=== PATIENT | female | born 1950 | race Caucasian/White ===

== ENCOUNTER 2016-07-10 10:34 | Inpatient (IN) | payer MEDICARE, OTHER ==
[~2016-07-10] VITALS: Ht 154.9 cm; Wt 59.5 kg
[~2016-07-10 10:34] MED LIST: MELO15TA2 PO; TRAM50 PO
[2016-07-10 10:35] VITALS: BP 126/60; PULSE 64; RESP 20; TEMP 98.3; O2SAT 97
--- NOTE | 2016-07-10 11:19 | PD ---
HPI Chief Complaint: Injury Time Seen by Provider: 11:11 Travel History International Travel<30 days: No Contact w/Intl Traveler<30days: No Traveled to known affect area: No History of Present Illness HPI 65-year-old female presents to the emergency department for evaluation of right knee injury that occurred on July 02, 2016. She was on a cruise ship when she slipped landing on her right knee. She denies any other injury. Patient denies hitting her head or LOC. No neck pain or back pain. No chest pain or abdominal pain. No vomiting. She was seen by the physician on the cruise ship and was instructed that she would need surgery. According to his documentation , sounds like a comminuted patella fracture. The patient states that she was given prescription for Tylenol number threes which she has been taking. The patient reports history of glaucoma and uses eyedrops. She also takes a aspirin daily, but has not taken any today. The patient states she last ate yesterday. She drank a cup of black coffee approximately 2 hours ago, around 9 AM. The patient denies any other complaints at this time. Patient states she returned from the cruise ship around 1 AM this morning. PFSH Past Surgical History Section: Yes Social History Alcohol Use: No Tobacco Use: No Substance Use: No Allergies-Medications (Allergen,Severity, Reaction): Coded Allergies: No Known Allergies (Unverified , 02/08/13) Reported Meds & Prescriptions Reported Meds & Active Scripts Active Aspirin 325 Mg Tab 325 Mg PO DAILY Start Aspirin after Lovenox is completed. Lovenox Inj (Enoxaparin Sodium) 40 Mg/0.4 Ml Syr 40 Mg SQ DAILY Start Aspirin after Lovenox is completed. Cheraw (Hydrocodone-Acetaminophen) 5-325 mg Tab 1-2 Tab PO Q4H PRN Ultram (Tramadol HCl) 50 Mg Tab 50 Mg PO Q6H PRN FOR PAIN Mobic (Meloxicam) 15 Mg Tab 1 Tab PO DAILY NEEDED FOR PAIN Review of Systems Except as stated in HPI: all other systems reviewed are Neg Physical Exam Narrative GENERAL: Well-nourished, well-developed female patient, afebrile. SKIN: Focused skin assessment warm/dry. Patient has large swelling and ecchymosis to right anterior knee. HEAD: Normocephalic. Atraumatic. EYES: No scleral icterus. No injection or drainage. NECK: Supple, trachea midline. No JVD or lymphadenopathy. CARDIOVASCULAR: Regular rate and rhythm without murmurs, gallops, or rubs. Right pedal pulse was easily found with Doppler. RESPIRATORY: Breath sounds equal bilaterally. No accessory muscle use. Lungs sounds are clear to auscultation. GASTROINTESTINAL: Abdomen soft, non-tender, nondistended. MUSCULOSKELETAL: No cyanosis, or edema. Patient has tenderness over right anterior knee. Range of motion was not tested at this time due to known patella fracture. BACK: Nontender without obvious deformity. No CVA tenderness. No midline spinal tenderness. Data Data Last Documented VS Vital Signs Date Time Temp Pulse Resp B/P Pulse Ox O2 Delivery O2 Flow Rate FiO2 07/10/16 11:40 Room Air 07/10/16 10:35 98.3 64 20 126/60 97 Orders Knee, Complete (4vws) (07/10/16 ) Complete Blood Count With Diff (07/10/16 12:38) Comprehensive Metabolic Panel (07/10/16 12:38) Act Partial Throm Time (Ptt) (07/10/16 12:38) Prothrombin Time / Inr (Pt) (07/10/16 12:38) Chest, Single Ap (07/10/16 ) Diet Npo (07/10/16 Lunch) Splint Or Brace Apply/Monitor (07/10/16 12:42) Admit Order (Ed Use Only) (07/10/16 12:48) MDM Medical Decision Making Medical Screen Exam Complete: Yes Emergency Medical Condition: Yes Medical Record Reviewed: Yes Interpretation(s) Last Impressions Knee X-Ray 07/10/16 0000 Signed Impressions: Service Date/Time: Sunday, July 10, 2016 15:39 - CONCLUSION: Anatomic alignment. Rikki Solis MD FACR Knee X-Ray 07/10/16 0000 Signed Impressions: Service Date/Time: Sunday, July 10, 2016 11:43 - CONCLUSION: Patella fracture with significant distraction. Rikki Solis MD FACR Chest X-Ray 07/10/16 0000 Signed Impressions: Service Date/Time: Sunday, July 10, 2016 12:52 - CONCLUSION: Compensated cardiomegaly otherwise negative Rikki Solis MD FACR Differential Diagnosis Patella fracture versus ligamentous injury versus dislocation Narrative Course 65 year old female presents to the emergency department for evaluation of right knee injury that occurred on a cruise ship on July 02. X-ray of the right knee is ordered and pending. X-ray of the right knee shows patellar fracture with significant distraction. I spoke to Dr. Alicea, orthopedist industrial automation specialist. He would like the patient to stay nothing by mouth and admitted to hospitalist. He will plan on doing surgery today. The resident's accepted admission. Diagnosis Primary Impression: Patellar fracture Qualified Code: S82.001A - Closed displaced fracture of right patella, unspecified fracture morphology, initial encounter Admitting Information Admitting Physician Requests: Admit Scripts Aspirin 325 Mg [id number] Mg PO DAILY #30 TAB Ref 0 Start Aspirin after Lovenox is completed. Prov:Mehul Alicea MD 07/10/16 Enoxaparin Inj (Lovenox Inj)40 Mg/0.4 Ml Syr40 Mg SQ DAILY #10 SYRINGE Ref 0 Start Aspirin after Lovenox is completed. Prov:Mehul Alicea MD 07/10/16 Hydrocodone-Acetaminophen (Cheraw)5-325 mg Tab1-2 Tab PO Q4H PRN (PAIN) #60 TAB Ref 0 Prov:Mehul Alicea MD 07/10/16 Isabel Pompa July 10, 2016 11:19
[2016-07-10] MEDS ORDERED: ePHEDrine/NS 25 MG/5 ML SYR IV ONE (12:00)
[2016-07-10] MEDS ORDERED: ONDANSETRON HCL 4 MG/2 ML VIAL IV PUSH ONE (12:00)
[2016-07-10] MEDS ORDERED: LACTATED RINGER'S 1000 ML INJ 1,000 ML IV ONE (12:00)
[2016-07-10] MEDS ORDERED: PROPOFOL 200 MG/20 ML AMP IV ONE (12:00)
--- NOTE | 2016-07-10 12:02 | RADRPT ---
EXAM DATE/TIME: 07/10/2016 11:43 [facility] COMPARISON: No previous studies available for comparison. INDICATIONS : Pain from fall. MEDICAL HISTORY : None. SURGICAL HISTORY : None. ENCOUNTER: Initial ACUITY: 1 week PAIN SCORE: 9/10 LOCATION: Right knee. FINDINGS: There is patella fracture with distraction by 4 cm between upper and lower pole.. Large joint effusi on is present. The femur and tibial plateau are intact CONCLUSION: Patella fracture with significant distraction. Rikki Solis MD FACR on July 10, 2016 at 11:59 Board Certified Radiologist. This report was verified electronically.
--- NOTE | 2016-07-10 12:49 | HHI.HP ---
[facility] Service Family Medicine Primary Care Physician Non-Staff Admission Diagnosis Patellar fracture Diagnoses: International Travel<30 Days: Yes Contact w/Intl Traveler<30days: [place] Traveled to: [place] Known Affected Area: No History of Present Illness 65 year old female with glaucoma is admitted for right patellar fracture. The patient was on a cruise with her when she slipped on the wet deck falling directly on her right knee on 07/02. She states she instantly heard a crack and knew she had broken her knee. She went [facility] and XRs showed the fracture. She was advised to have surgery but she wanted to wait to come back to the [place] rather than having surgery in [facility] where it would not be covered. She has been managing her pain with Tylenol with codeine and ambulating with crutches. She did not sustain any other injuries, hit her head, or lose consciousness. She has no local PCP as she spends most of the year in [place]. (Pati Jacob MD) Review of Systems Constitutional: DENIES: Fatigue, Fever, Chills Eyes: DENIES: Blurred vision Respiratory: DENIES: Cough, Shortness of breath Cardiovascular: DENIES: Chest pain, Palpitations, Syncope, Lower Extremity Edema Gastrointestinal: DENIES: Abdominal pain, Black stools, Bloody stools, Constipation, Diarrhea, Nausea, Vomiting Musculoskeletal: COMPLAINS OF: Joint pain (R knee), Joint Swelling (R knee), DENIES: Back pain, Neck pain Hematologic/lymphatic: COMPLAINS OF: Bruising (R knee) Neurologic: COMPLAINS OF: Abnormal gait, DENIES: Headache, Paresthesias ( Pati Jacob MD) Past Family Social History Past Medical History Glaucoma Past Surgical History x 3 Reported Medications Ultram (Tramadol HCl) 50 Mg Tab 50 Mg PO Q6H PRN Mobic (Meloxicam) 15 Mg Tab 1 Tab PO DAILY PRN (Pati Jacob MD) Allergies: Coded Allergies: No Known Allergies (Unverified , 02/08/13) Active Ordered Medications Acetaminophen (Ofirmev Inj) 1,000 mg Q6H PRN IV; Start 07/10/16 at 13:30; Status UNV Morphine Sulfate (Morphine Inj) 2 mg Q3H PRN IV PUSH; Start 07/10/16 at 13:30; Status UNV Naloxone HCl (Narcan Inj) 0.4 mg UNSCH PRN IV; Start 07/10/16 at 13:30; Status UNV Ondansetron HCl (Zofran Inj) 4 mg Q6H PRN IVP; Start 07/10/16 at 13:30; Status UNV Sodium Chloride (NS 1000 ml Inj) 1,000 ml @ 100 mls/hr Q10H IV; Start 07/10/16 at 13:16; Status UNV Sodium Chloride (NS Flush) 2 ml BID IV FLUSH; Start 07/10/16 at 21:00; Status UNV Sodium Chloride (NS Flush) 2 ml UNSCH PRN IV FLUSH; Start 07/10/16 at 13:30; Status UNV Temazepam (Restoril) 15 mg HS PRN PO; Start 07/10/16 at 13:30; Status UNV Family History Mother: , CVA Father: , prostate cancer Social History Lives with in [facility] and [place] Retired EtOH: never Tobacco: never Illicit drugs: never (Pati Jacob MD) Physical Exam Vital Signs Vital Signs Date Time Temp Pulse Resp B/P Pulse Ox O2 Delivery O2 Flow Rate FiO2 07/10/16 10:35 98.3 64 20 126/60 97 Room Air Physical Exam GENERAL: Well-nourished, well-developed female laying comfortably in bed in no apparent distress. SKIN: Warm and dry. HEENT: Atraumatic. Normocephalic. No temporal or scalp tenderness. Pupils equal round and reactive. Extraocular motions intact. No scleral icterus. No injection or drainage. Nose without bleeding, purulent drainage or septal hematoma. Throat without erythema, tonsillar hypertrophy or exudate. Uvula midline. Airway patent. NECK: Trachea midline. No JVD or lymphadenopathy. Supple, nontender, no meningeal signs. CARDIOVASCULAR: Regular rate and rhythm without murmurs, gallops, or rubs. RESPIRATORY: Clear to auscultation. Breath sounds equal bilaterally. No wheezes , rales, or rhonchi. GASTROINTESTINAL: Vertical incision scar over lower abdomen. Abdomen soft, nontender, nondistended. No hepatosplenomegaly or palpable masses. No guarding. MUSCULOSKELETAL: Right knee with significant effusion and bruising. Able to wiggle toes and neurovascular intact. Bilateral calves supple without tenderness. NEUROLOGICAL: Awake and alert. Motor and sensory grossly within normal limits. Normal speech. (Pati Jacob MD) Imaging Knee X-Ray 07/10/16 0000 Signed Impressions: Service Date/Time: Sunday, July 10, 2016 11:43 - CONCLUSION: Patella fracture with significant distraction. Rikki Solis MD FACR (Pati Jacob MD) Assessment and Plan Assessment and Plan 65 year old female admitted for right patellar fracture after a mechanical fall on 07/02/16. Orthopedic surgery is consulted and Dr. Wild planning for surgery today. Code Status FULL (Pati Jacob MD) Attending Attestation Patient seen and examined. Case reviewed and discussed with the resident team. Agree with plan of care as discussed with me and documented in the resident note. seen originally in ED just prior to surgery (Mitzi Raymond MD) Problem List: (1) Patellar fracture Status: Acute Plan: Patient sustained a right patellar fracture with 4 cm distraction and significant effusion. Orthopedic surgery consulted and planning on surgery today. - Ofirmev Q6H PRN - Morphine 2 mg IV Q3H PRN breakthrough - Will await post-op recommendations to determine D/C needs (e.g. PT, home health, etc.) (2) Nutrition, metabolism, and development symptoms Status: Acute Plan: - Fluids: NS at 100 ml/hr since NPO - Electrolytes: Monitor - Nutrition: NPO in anticipation of surgery - DVT prophylaxis: No chemical anticoagulation since upcoming surgical procedure Chronic medical problems - Glaucoma: resume home drops (patient has with her) (Pati Jacob MD) Physician Certification 2 Midnight Certification Type: Admission for Inpatient Services Order for Inpatient Services The services are ordered in accordance with Medicare regulations or non- Medicare payer requirements, as applicable. In the case of services not specified as inpatient-only, they are appropriately provided as inpatient services in accordance with the 2-midnight benchmark. Estimated LOS (days): 2 2 days is the estimated time the patient will need to remain in the hospital, assuming treatment plan goals are met and no additional complications. Post-Hospital Plan: Home Health (Pati Jacob MD) Problem Qualifiers (1) Patellar fracture: Qualified Code: S82.001A - Closed displaced fracture of right patella, unspecified fracture morphology, initial encounter Pati Jacob MD July 10, 2016 12:49 Mitzi Raymond MD July 11, 2016 11:34
[2016-07-10] MEDS ORDERED: NALOXONE HCL 0.4 MG/ML AMP IV PRN ×2 (13:30→16:00)
[2016-07-10] MEDS ORDERED: ACETAMINOPHEN 1000 MG/100 ML VIAL IV PRN (13:30)
[2016-07-10] MEDS ORDERED: SODIUM CHLORIDE 0.9% FLUSH 10 ML FLUSH IV FLUSH PRN (13:30)
[2016-07-10] MEDS ORDERED: ONDANSETRON HCL 4 MG/2 ML VIAL IVP PRN ×2 (13:30→16:00)
[2016-07-10] MEDS ORDERED: MORPHINE SULFATE 4 MG/ML INJ IV PUSH PRN ×2 (13:30→16:00)
[2016-07-10] MEDS ORDERED: TEMAZEPAM 15 MG CAP PO PRN (13:30)
[2016-07-10 13:35] VITALS: BP 139/65; PULSE 65; RESP 20; TEMP 98.6; O2SAT 97
[2016-07-10 13:38] VITALS: O2SAT 96
[2016-07-10 13:41] LABS: AUTOMATED NEUTROPHIL # 5.7 TH/MM3 (1.8-7.7); BASOPHIL # 0.1 TH/MM3 (0-0.2); BASOPHIL % 0.8 % (0.0-2.0); EOSINOPHIL # 0.1 TH/MM3 (0-0.4); EOSINOPHIL % 1.5 % (0.0-4.0); HEMATOCRIT 39.7 % (35.0-46.0); HEMO FLAGS DIFF FINAL; LYMPH % 27.7 % (9.0-44.0); LYMPHOCYTE # 2.6 TH/MM3 (1.0-4.8); MEAN CELL VOLUME 94.4 FL (80.0-100.0); MEAN CORPUSCULAR HEMOGLOBIN 31.5 PG (27.0-34.0); MEAN CORPUSCULAR HGB CONC 33.4 % (32.0-36.0); MONO % 8.1 % (0.0-8.0); NEUT % 61.9 % (16.0-70.0); PLATELET COUNT 307 TH/MM3 (150-450); RED BLOOD COUNT 4.21 MIL/MM3 (4.00-5.30); RED CELL DISTRIBUTION WIDTH 12.6 % (11.6-17.2); WHITE BLOOD COUNT 9.2 TH/MM3 (4.0-11.0)
[2016-07-10] MEDS ORDERED: GENTAMICIN SULFATE 80 MG/2 ML VIAL ONE (13:44)
[2016-07-10] MEDS ORDERED: ceFAZolin INJ 1,000 MG VIAL ONE ×2 (13:44→14:09)
[2016-07-10 13:50] LABS: PROTHROMBIN TIME - PATIENT 10.7 SEC (9.8-11.6)
[2016-07-10 13:53] LABS: APTT (PATIENT) 25.3 SEC (24.3-30.1)
[2016-07-10] MEDS ORDERED: SODIUM CHLOR 0.9% 1000 ML INJ 1,000 ML IV SCH (14:00)
[2016-07-10] MEDS ORDERED: VANCOMYCIN HCL 1000 MG VIAL ONE (14:09)
[2016-07-10] MEDS ORDERED: SODIUM CHLORIDE 0.9% INJ 100 ML ONE (14:10)
[2016-07-10] MEDS ORDERED: SODIUM CHLOR 0.9% 250 ML INJ 250 ML ONE (14:10)
--- NOTE | 2016-07-10 14:25 | RADRPT ---
EXAM DATE/TIME: 07/10/2016 12:52 [facility] COMPARISON: No previous studies available for comparison. INDICATIONS : Evaluate for pneumonia, pneumothorax and communicable disease. Pre-op right knee brizuela rgery. MEDICAL HISTORY : None. SURGICAL HISTORY : None. ENCOUNTER: Initial ACUITY: 1 day PAIN SCORE: 0/10 LOCATION: Bilateral chest FINDINGS: The lungs are clear. The heart is minimally enlarged. The pulmonary vascularity is normal. There is n o evidence for infiltrate or failure. The portion of the bony skeleton visualized is unremarkable. CONCLUSION: Compensated cardiomegaly otherwise negative Rikki Solis MD FACR Board Certified Radiologist. This report was verified electronically.
[2016-07-10] MEDS ORDERED: VANCOMYCIN 1,000 MG/NS 250 ML IV ONE ×2 (14:30)
[2016-07-10] MEDS ORDERED: ceFAZolin 1,000 MG/NS 100 ML IV ONE ×2 (14:30)
[2016-07-10] MEDS ORDERED: TRANEXAMIC ACID IV SCH (14:30)
[2016-07-10] MEDS ORDERED: SODIUM CHLORIDE 0.9% IV SCH (14:30)
[2016-07-10] MEDS ORDERED: SODIUM CHLORIDE 0.9% IV ONE (14:40)
[2016-07-10] MEDS ORDERED: TRANEXAMIC ACID IV ONE (14:40)
--- NOTE | 2016-07-10 14:59 | MB ---
cc: MITRA DELGADO DATE OF CONSULTATION: 07/10/2016 REASON FOR CONSULTATION Right patella fracture. HISTORY OF PRESENT ILLNESS The patient is a 65-year-old female with a history for glaucoma. She was on a cruise and on July 02 she fell onto the deck falling directly onto the right knee. She immediately felt a crack and was unable to ambulate. She tells me that the cruise provided her with a single crutch to help prop up her leg. The patient was advised that she needed to have surgery. The patient decided that she wanted to come back to the [place] rather than having surgery in [place]. She was being managed on Tylenol with codeine. The patient denies pain in other body areas. She does not describe any specific numbness or tingling about the right lower extremity. PAST MEDICAL HISTORY Positive for glaucoma. PAST SURGICAL HISTORY x3. MEDICATIONS Tramadol. ALLERGIES No known drug allergies. FAMILY HISTORY Noncontributory. SOCIAL HISTORY The patient lives in [facility]. She is retired. She does not drink alcohol and does not smoke. PHYSICAL EXAMINATION VITAL SIGNS: The patient's temperature is 98.6, pulse 65, respirations 20, blood pressure 139/65. GENERAL: She is awake, alert and oriented x3. She has normal affect, insight and judgment. HEENT: Head is atraumatic. Oropharynx is moist. NECK: Supple. HEART: Regular rate and rhythm. LUNGS: Clear to auscultation bilaterally. ABDOMEN: Soft, nontender, nondistended. BACK: No CVA tenderness. EXTREMITIES: Right lower extremity with significant swelling and moderate bruising. She has some swelling going down towards the ankle but not a lot of pitting edema. She can actively move the toes well on the right lower extremity. She has 2+ dorsalis pedis pulse. The left knee has no swelling, no tenderness, normal alignment. Bilateral upper extremities have good active range of motion. IMAGING Imaging reveals a significantly displaced transverse patella fracture. LABORATORY Laboratory studies show a white cell count of 9.2, hematocrit 39.7, INR 1.0. Chemistry is pending. IMPRESSION Right knee significantly displaced patella fracture. DECISION-MAKING I reviewed the diagnosis in detail with the patient. We discussed the radiology report and my interpretation of the images. I do feel that surgical management is urgently indicated for management of this condition. Without surgical management the patient would likely have severe dysfunction of the leg and likely be unable to actively extend the leg which would significantly and seriously impede the patient to have normal walking ability with the leg. Nonoperative management will create severe disability to the right leg. Therefore, I would recommend an open reduction and internal fixation of the right patella. There are risks associated with surgery. She understands the risks to include but not limited to injury to nerves and blood vessels, bleeding, infection, failure of hardware, need for reoperation, continued pain, loss of range of motion of the knee, weakness of the knee, need for removal of the hardware, DVT, pulmonary embolus, pneumonia and . The patient wants to move forward with surgical management. All questions have been answered. MD HILARIO Lea/SHAKEEL /2:30 PM /2:45 PM
[2016-07-10] MEDS ORDERED: Post-op Orders (for Pharmacy) MISC XX ONE (16:00)
[2016-07-10] MEDS ORDERED: SODIUM CHLORIDE 0.9% FLUSH 5 ML FLUSH IVF PRN (16:00)
[2016-07-10] MEDS ORDERED: MISCELLANEOUS PHARMACY INFORMATION XX ONE (16:00)
[2016-07-10] MEDS ORDERED: MAGNESIUM HYDROXIDE SUSP 30 ML CUP PO PRN (16:00)
[2016-07-10] MEDS ORDERED: MISCELLANEOUS NURSING INFORMATION XX PRN (16:00)
[2016-07-10] MEDS ORDERED: diphenhydrAMINE HCL 25 MG CAP PO PRN (16:00)
[2016-07-10] MEDS ORDERED: ACETAMINOPHEN/HYDROcodone 325 MG/5 MG TAB PO PRN (16:00)
--- NOTE | 2016-07-10 16:04 | PD.OP ---
cc: Mehul Alicea MD Operative Report Date of Surgery: July 10, 2016 Preoperative Diagnosis: Right knee significantly displaced patella fracture Postoperative Diagnosis: Same Procedure: Right knee patella open reduction and internal fixation Anesthesia: Gen. Surgeon: Mehul Alicea Plsql Developer(s): ROSSANA Dubois The surgical procedure was assisted by my Advanced Registered Nurse Practitioner. My FRONT END APPLICATION DEVELOPER presence was necessary throughout this case for the manipulation and positioning of the surgical extremity. My FRONT END APPLICATION DEVELOPER was assisting me throughout the duration of this procedure. The skill set of an Advance Registered Nurse Practitioner was medically necessary to complete this procedure. During the surgical case, the surgical services assistant was working at the back table and the Advance Registered Nurse Practitioner was directly assisting me. Operation and Findings: Tourniquet time: 35 minutes at 250 mmHg of pressure Estimated blood loss: 50 cc The patient received intravenous vancomycin and Ancef. After the appropriate anesthesia was administered, the patient's leg was prepped and draped in the usual sterile fashion. The leg was exsanguinated and the tourniquet was raised. We made a standard incision on the anterior aspect of the knee. We immediately identified a displaced transverse patella fracture. We evacuated significant hematoma. We curetted the edges to identify both the proximal and distal fragments. There was some comminution noted medially and inferiorly which was removed. The visualized portion of the trochlea was unremarkable. We anatomically reduced the fracture fragments and provisionally held the fracture with reduction clamps. We verified anatomic alignment both on palpation of the articular surface and also on fluoroscopy. We then placed 2 wires from distal to proximal. We used these wires to place 2 individual 4-0 Synthes cannulated stainless steel partially-threaded screws. Both screws had very good purchase. We then placed 18-gauge wire through the first screw then crisscrossed and brought it down to the bottom of the second screw and threaded the wire through the second screw. We then had a crisscross pattern that we tightened both the medial and lateral sides of the wire in usual fashion with excellent compression. The knee had full range of motion with no displacement of the fracture noted. We took final fluoroscopic images. The tourniquet was released. Hemostasis was achieved and the knee was thoroughly irrigated. We augmented repair of both the medial and lateral retinaculum which were torn. This was completed with 1-0 Vicryl. Skin was closed with 2-0 Vicryl followed by tanya. The postoperative plan is for weight-bear as tolerated to the extremity with a canvas knee splint. Mehul Alicea MD July 10, 2016 16:04
[2016-07-10] MEDS ORDERED: ENOX40P SQ (16:10)
[2016-07-10] MEDS ORDERED: NORC5TAB PO (16:10)
[2016-07-10] MEDS ORDERED: ASPI325T PO (16:10)
[2016-07-10] MEDS ORDERED: *morphine SULFATE 8 MG/ML PERIprocedure ONLY ONE ×2 (16:24→16:37)
[2016-07-10] MEDS ORDERED: MIDAZOLAM HCL 2 MG/2 ML VIAL ONE (16:28)
[2016-07-10] MEDS ORDERED: fentaNYL CITRATE 250 MCG/5 ML AMP ONE (16:28)
[2016-07-10] MEDS: DEXT 5%-NACL 0.45% 1000 ML INJ 1,000 ML IV SCH (16:45)
[2016-07-10] MEDS ORDERED: WALKER WHEELS/F1 MIS (16:46)
[2016-07-10] MEDS ORDERED: COMMODE 3-IN-11 MIS (16:46)
[2016-07-10] MEDS ORDERED: *HYDROmorphone PF 1 MG VIAL PERIprocedural Use ONLY ONE ×2 (16:55→17:18)
--- NOTE | 2016-07-10 16:55 | RADRPT ---
EXAM DATE/TIME: 07/10/2016 15:39 [facility] COMPARISON: No previous studies available for comparison. INDICATIONS : Reduction with screw and wire placement right patella. MEDICAL HISTORY : Patella fracture SURGICAL HISTORY : None. ENCOUNTER: Subsequent ACUITY: 1 day PAIN SCORE: Non-responsive. LOCATION: Right knee. FINDINGS: Screws and wrap are seen bridging the patella fracture. Alignment is anatomic. CONCLUSION: Anatomic alignment. Rikki Solis MD FACR on July 10, 2016 at 16:44 Board Certified Radiologist. This report was verified electronically.
[2016-07-10] MEDS ORDERED: DO NOT ADM ANY ANTICOAGULANT DRUGS PRN (17:00)
[2016-07-10 18:17] VITALS: BP 137/71; PULSE 67; RESP 16; TEMP 97.4; O2SAT 99
[2016-07-10 20:00] VITALS: BP 117/64; PULSE 63; RESP 16; TEMP 95.7; O2SAT 100
[2016-07-10] MEDS: DOCUSATE SODIUM 50 MG/SENNA 8.6 MG TAB PO SCH (20:12)
[2016-07-10] MEDS ORDERED: SODIUM CHLORIDE 0.9% FLUSH 10 ML FLUSH IV FLUSH SCH (21:00)
[2016-07-10] MEDS: SODIUM CHLORIDE 0.9% FLUSH 5 ML FLUSH IVF SCH (21:00)
[2016-07-10] MEDS ORDERED: COMBIGAN EACH EYE SCH (21:00)
[2016-07-10 21:04] LABS: ANION GAP 8 MEQ/L (5-15); AST (GOT) 34 U/L (15-37); BICARBONATE 26.9 MEQ/L (21.0-32.0); BLOOD UREA NITROGEN 12 MG/DL (7-18); CHLORIDE 101 MEQ/L (98-107); GLOMERULAR FILTRATION RATE 73 ML/MIN (>89); POTASSIUM 4.1 MEQ/L (3.5-5.1); SODIUM (NA) 136 MEQ/L (136-145)
[2016-07-10 21:08] LABS: ALKALINE PHOSPHATASE 126 U/L (45-117); ALT (GPT) 50 U/L (10-53); TOTAL BILIRUBIN ADULT 0.5 MG/DL (0.2-1.0)
[2016-07-11] VITALS: BP 104/59; PULSE 67; RESP 16; TEMP 97.6; O2SAT 97
[2016-07-11] MEDS: DEXT 5%-NACL 0.45% 1000 ML INJ 1,000 ML IV SCH ×2 (02:00→12:00)
[2016-07-11 03:41] VITALS: O2SAT 98
[2016-07-11 04:00] VITALS: BP 110/64; PULSE 75; RESP 16; TEMP 97.7; O2SAT 97
[2016-07-11] MEDS: ACETAMINOPHEN/HYDROcodone 325 MG/5 MG TAB PO PRN ×3 (04:20→14:19)
[2016-07-11 07:10] LABS: AUTOMATED NEUTROPHIL # 7.6 TH/MM3 (1.8-7.7); BASOPHIL # 0.1 TH/MM3 (0-0.2); BASOPHIL % 0.5 % (0.0-2.0); EOSINOPHIL % 0.3 % (0.0-4.0); HEMATOCRIT 34.9 % (35.0-46.0); HEMO FLAGS DIFF FINAL; LYMPH % 22.4 % (9.0-44.0); LYMPHOCYTE # 2.5 TH/MM3 (1.0-4.8); MEAN CELL VOLUME 94.4 FL (80.0-100.0); MEAN CORPUSCULAR HEMOGLOBIN 31.4 PG (27.0-34.0); MEAN CORPUSCULAR HGB CONC 33.3 % (32.0-36.0); MONO % 7.9 % (0.0-8.0); NEUT % 68.9 % (16.0-70.0); PLATELET COUNT 296 TH/MM3 (150-450); RED BLOOD COUNT 3.69 MIL/MM3 (4.00-5.30); RED CELL DISTRIBUTION WIDTH 12.4 % (11.6-17.2)
[2016-07-11] MEDS: DOCUSATE SODIUM 50 MG/SENNA 8.6 MG TAB PO SCH (07:38)
[2016-07-11] MEDS: SODIUM CHLORIDE 0.9% FLUSH 5 ML FLUSH IVF SCH (07:39)
[2016-07-11 07:55] VITALS: BP 120/58; PULSE 73; RESP 16; TEMP 99.3; O2SAT 97
[2016-07-11] MEDS ORDERED: MULTIVITAMINS/MINERALS THERAPEUTIC TAB PO SCH (09:00)
--- NOTE | 2016-07-11 09:41 | PD.ORT.PN ---
Subjective Subjective Remarks c/o pain, but controlled Objective Vitals Vital Signs Date Time Temp Pulse Resp B/P Pulse Ox O2 Delivery O2 Flow Rate FiO2 07/11/16 09:26 18 07/11/16 07:55 99.3 73 16 120/58 97 07/11/16 04:00 97.7 75 16 110/64 97 07/11/16 03:41 98 07/11/16 00:00 97.6 67 16 104/59 97 07/10/16 20:00 95.7 63 16 117/64 100 07/10/16 18:17 97.4 67 16 137/71 99 07/10/16 17:30 97.3 79 13 155/60 98 Nasal Cannula 2 07/10/16 17:15 69 13 155/60 97 07/10/16 17:00 77 14 156/71 100 07/10/16 16:45 76 26 160/70 100 Nasal Cannula 2 07/10/16 16:21 97.3 82 12 102/58 100 Nasal Cannula 2 07/10/16 13:38 96 21 07/10/16 13:35 98.6 65 20 139/65 97 Room Air 07/10/16 11:40 Room Air 07/10/16 10:35 98.3 64 20 126/60 97 Room Air I/O 07/10/16 07/10/16 07/10/16 07/11/16 07/11/16 07/11/16 07:00 15:00 23:00 07:00 15:00 23:00 Intake Total 1340 ml 240 ml Output Total 20 ml Balance 1320 ml 240 ml Intake Oral 240 ml 240 ml Other 1100 ml Output Estimated Blood Loss 20 ml # Voids 2 1 # Bowel Movements 0 Result Diagram: 07/11/16 0636 07/10/162021 Other Results Laboratory Tests Test 07/10/16 13:20 Prothrombin Time 10.7 SEC (9.8-11.6) Prothromb Time International 1.0 RATIO Ratio Objective Remarks right leg is dressed and clean, 2+, calf soft with no swelling, moves toes Assessment & Plan Assessment and Plan POD #1 s/p R patella ORIF NWB Lovenox PT today, if ok then d/c home Mehul Alicea MD July 11, 2016 09:41
--- NOTE | 2016-07-11 09:45 | HHI.FF ---
Face to Face Verification Diagnosis: (1) Patellar fracture Physical Therapy Order: Evaluate and Treat, Improve ambulation, Strength and gait training I have seen patient Cassandra Mccann on 07/11/16. My clinical findings support the need for the requested home health care services because: Deconditioned w/ increased weakness High risk of falls I certify that my clinical findings support that this patient is homebound because: Unsteady gait/balance Unsafe to leave home unassisted Anastasiia Cruz MD R1 July 11, 2016 09:45
--- NOTE | 2016-07-11 09:46 | HHI.DCPOC ---
Discharge Care Plan Diagnosis: (1) Patellar fracture Goals to Promote Your Health * To prevent worsening of your condition and complications * To maintain your health at the optimal level Directions to Meet Your Goals Take your medications as prescribed Follow your dietary instruction Follow activity as directed Keep your appointments as scheduled Take your immunizations and boosters as scheduled If your symptoms worsen call your PCP, if no PCP go to Urgent Care Center or Emergency Room Smoking is Dangerous to Your Health. Avoid second hand smoke Call the 24-hour hour crisis hotline for domestic abuse at Anastasiia Cruz MD R1 July 11, 2016 09:46
[2016-07-11] MEDS ORDERED: KETOROLAC TROMETHAMINE 30 MG/ML (IVP) VIAL IV PUSH SCH (10:00)
--- NOTE | 2016-07-11 11:33 | HHI.HP ---
[facility] Service Family Medicine Primary Care Physician Non-Staff Admission Diagnosis Patellar fracture Diagnoses: (1) Patellar fracture Diagnosis: Principal (2) Nutrition, metabolism, and development symptoms Diagnosis: Principal International Travel<30 Days: Yes Contact w/Intl Traveler<30days: [place] Country Traveled to: [facility] Known Affected Area: No History of Present Illness Ms Mccann is a 65 year old female with glaucoma who was admitted for right patellar fracture. The patient was on a cruise with her when she slipped on the wet deck falling directly on her right knee on 07/02. She states she instantly heard a crack and knew she had broken her knee. [facility] and XRs showed the fracture. She was advised to have surgery but she wanted to wait to come back to the [place] rather than having surgery in [facility] where it would not be covered. She has been managing her pain with Tylenol with codeine and ambulating with crutches. She did not sustain any other injuries, hit her head, or lose consciousness. She has no local PCP as she spends most of the year in [place]. She was admitted yesterday and had surgical repair and is ready to go home today with close orthopedic follow up. Review of Systems Other Constitutional: DENIES: Fatigue, Fever, Chills Eyes: DENIES: Blurred vision Respiratory: DENIES: Cough, Shortness of breath Cardiovascular: DENIES: Chest pain, Palpitations, Syncope, Lower Extremity Edema Gastrointestinal: DENIES: Abdominal pain, Black stools, Bloody stools, Constipation, Diarrhea, Nausea, Vomiting Musculoskeletal: COMPLAINS OF: Joint pain (R knee), Joint Swelling (R knee), DENIES: Back pain, Neck pain Hematologic/lymphatic: COMPLAINS OF: Bruising (R knee) Neurologic: COMPLAINS OF: Abnormal gait, DENIES: Headache, Paresthesias Past Family Social History Past Medical History Glaucoma Past Surgical History x 3 Allergies: Coded Allergies: No Known Allergies (Unverified , 02/08/13) Family History Mother: , CVA Father: , prostate cancer Social History Lives with in [facility] and [place] Retired EtOH: never Tobacco: never Illicit drugs: never Physical Exam Vital Signs Vital Signs Date Time Temp Pulse Resp B/P Pulse Ox O2 Delivery O2 Flow Rate FiO2 07/11/16 09:26 18 5/13/17 07:55 99.3 73 16 120/58 97 07/11/16 04:00 97.7 75 16 110/64 97 07/11/16 03:41 98 07/11/16 00:00 97.6 67 16 104/59 97 07/10/16 20:00 95.7 63 16 117/64 100 07/10/16 18:17 97.4 67 16 137/71 99 07/10/16 17:30 97.3 79 13 155/60 98 Nasal Cannula 2 07/10/16 17:15 69 13 155/60 97 07/10/16 17:00 77 14 156/71 100 07/10/16 16:45 76 26 160/70 100 Nasal Cannula 2 07/10/16 16:21 97.3 82 12 102/58 100 Nasal Cannula 2 07/10/16 13:38 96 21 07/10/16 13:35 98.6 65 20 139/65 97 Room Air 07/10/16 11:40 Room Air Physical Exam GENERAL: Well-nourished, well-developed female laying comfortably in bed in no apparent distress. SKIN: Warm and dry. HEENT: Atraumatic. Normocephalic.Pupils equal round and reactive. Extraocular motions intact. No scleral icterus. No injection or drainage. Nose without bleeding, purulent drainage or septal hematoma. Airway patent. NECK: Trachea midline. No JVD or lymphadenopathy. Supple, nontender, no meningeal signs. CARDIOVASCULAR: Regular rate and rhythm without murmurs, gallops, or rubs. RESPIRATORY: Clear to auscultation. Breath sounds equal bilaterally. No wheezes , rales, or rhonchi. GASTROINTESTINAL: Vertical incision scar over lower abdomen. Abdomen soft, nontender, nondistended. No hepatosplenomegaly or palpable masses. No guarding. MUSCULOSKELETAL: Right knee with significant effusion and bruising prior to surgery, now bandaged. Able to wiggle toes and neurovascular intact. Bilateral calves supple without tenderness. NEUROLOGICAL: Awake and alert. Motor and sensory grossly within normal limits. Normal speech. Laboratory Laboratory Tests Test 07/10/16 07/10/16 07/11/16 13:20 20:22 06:36 White Blood Count 9.2 11.0 Red Blood Count 4.21 3.69 Hemoglobin 13.3 11.6 Hematocrit 39.7 34.9 Mean Corpuscular Volume 94.4 94.4 Mean Corpuscular Hemoglobin 31.5 31.4 Mean Corpuscular Hemoglobin 33.4 33.3 Concent Red Cell Distribution Width 12.6 12.4 Platelet Count 307 296 Mean Platelet Volume 7.4 7.6 Neutrophils (%) (Auto) 61.9 68.9 Lymphocytes (%) (Auto) 27.7 22.4 Monocytes (%) (Auto) 8.1 7.9 Eosinophils (%) (Auto) 1.5 0.3 Basophils (%) (Auto) 0.8 0.5 Neutrophils # (Auto) 5.7 7.6 Lymphocytes # (Auto) 2.6 2.5 Monocytes # (Auto) 0.7 0.9 Eosinophils # (Auto) 0.1 0.0 Basophils # (Auto) 0.1 0.1 CBC Comment DIFF FINAL DIFF FINAL Differential Comment Prothrombin Time 10.7 Prothromb Time International 1.0 Ratio Activated Partial 25.3 Thromboplast Time Sodium Level 136 Potassium Level 4.1 Chloride Level 101 Carbon Dioxide Level 26.9 Anion Gap 8 Blood Urea Nitrogen 12 Creatinine 0.79 Estimat Glomerular Filtration 73 Rate Random Glucose 158 Calcium Level 8.5 Total Bilirubin 0.5 Aspartate Amino Transf 34 (AST/SGOT) Alanine Aminotransferase 50 (ALT/SGPT) Alkaline Phosphatase 126 Total Protein 7.1 Albumin 3.1 Result Diagram: 07/11/16 0636 07/10/162021 Imaging Knee X-Ray 07/10/16 0000 Signed Impressions: Service Date/Time: Sunday, July 10, 2016 11:43 - CONCLUSION: Patella fracture with significant distraction. Rikki Solis MD FACR Assessment and Plan Assessment and Plan 65 year old female admitted for right patellar fracture after a mechanical fall on 07/02/16. Orthopedic surgery is consulted and Dr. Wild performed surgery on 07-10-16. Problem List: (1) Patellar fracture Status: Acute Plan: Patient sustained a right patellar fracture with 4 cm distraction and significant effusion. Orthopedic surgery consulted and surgery done 07-10-16. - Ofirmev Q6H PRN - Morphine 2 mg IV Q3H PRN breakthrough - post-op recommendations for PT, home health -pt should be able to go home today (2) Nutrition, metabolism, and development symptoms Status: Acute Plan: - Fluids: NS at 100 ml/hr overnight but can take po now - Electrolytes: Monitor - DVT prophylaxis: No chemical anticoagulation since surgical procedure, orthopedics can determine best anticoagulants at this time Chronic medical problems - Glaucoma: resume home drops (patient has with her) Physician Certification 2 Midnight Certification Type: Admission for Inpatient Services Order for Inpatient Services The services are ordered in accordance with Medicare regulations or non- Medicare payer requirements, as applicable. In the case of services not specified as inpatient-only, they are appropriately provided as inpatient services in accordance with the 2-midnight benchmark. Estimated LOS (days): 2 2 days is the estimated time the patient will need to remain in the hospital, assuming treatment plan goals are met and no additional complications. Post-Hospital Plan: Home Health Problem Qualifiers (1) Patellar fracture: Qualified Code: S82.001A - Closed displaced fracture of right patella, unspecified fracture morphology, initial encounter Mitzi Raymond MD July 11, 2016 11:33
[2016-07-11 12:00] VITALS: BP 129/65; PULSE 76; RESP 16; TEMP 98.8; O2SAT 98
[2016-07-11] MEDS ORDERED: ENOXAPARIN SODIUM 40 MG/0.4 ML SYRINGE SQ SCH (14:00)
== END 2016-07-11 14:25 | disposition home or self-care (01) | DRG 517 ==
LOC: NEPD 10:34 → NEDA 12:49 → OBSVTOIN 13:19 → N06A 17:44
PROVIDERS: ADMIT Family Medicine; ATTEND Family Medicine
PROC: 0QSD04Z Reposition Right Patella with Internal Fixation Device, Open Approach (ICD-10-PCS; principal; 2016-07-10 14:24)
DX: S82.031A Displaced transverse fracture of right patella, initial encounter for closed fracture (principal); H40.9 Unspecified glaucoma; Z79.82 Long term (current) use of aspirin; Y92.89 Other specified places as the place of occurrence of the external cause; W01.0XXA Fall on same level from slipping, tripping and stumbling without subsequent striking against object, initial encounter
CPT/HCPCS: 71010; 73560; 73564; 76000; 80053; 85025; 85610; 85730; 94150; C1713; J0690; J1170; J1580; J1650; J1885; J2250; J2270; J2405; J3010; J3370; J7050; J7120; L1830